=== PATIENT | male | born 1950 | race Caucasian/White ===

== ENCOUNTER → 2021-01-28 19:53 | Outpatient (CLI) | payer SELFPAY ==
[2021-01-28 20:25] LABS: ANION GAP 8.6 mmol/L (8-16); CALCIUM 8.8 mg/dL (8.5-10.1); CARBON DIOXIDE 30.7 mmol/L (21.0-32.0); CHOL - HDL RATIO 2.7 ratio (2.3-4.9); CREATININE - SERUM 1.3 mg/dL (0.6-1.3); LDL-HDL RATIO 1.3 ratio (1.5-3.5); LYMPHOCYTE ABS# 2.89 10x3/uL (1.32-3.57); MCH 28.5 pg (26.0-34.0); MCHC 34.1 g/dL (31.0-37.0); MCV 83.3 fL (80.0-100.0); NEUTROPHIL ABS# 4.36 10x3/uL (1.78-5.38); PLATELET COUNT 253 10x3/uL (130-400); POTASSIUM - SERUM 4.3 mmol/L (3.5-5.1); RBC 4.92 10x6/uL (4.20-6.10); RDW 13.6 % (11.5-14.5); WBC 8.1 10x3/uL (4.8-10.8)
[2021-01-28 21:32] LABS: EOSINOPHILS 4 % (0-7); LYMPHOCYTES 46 % (15-50); MONOCYTES 11 % (2-11); NEUTROPHILS 36 % (40-80); PLATELET ESTIMATE NORMAL
== END | disposition home or self-care (01) ==
LOC: D.LABREF 19:53
PROVIDERS: ATTEND Family Medicine
DX: J44.9 Chronic obstructive pulmonary disease, unspecified (principal); E10.65 Type 1 diabetes mellitus with hyperglycemia; I10 Essential (primary) hypertension; I25.10 Atherosclerotic heart disease of native coronary artery without angina pectoris